=== PATIENT | male | born 2000 | race Caucasian/White ===

== ENCOUNTER 2024-03-29 13:46 | Emergency (ER) | payer BC ==
[~2024-03-29] VITALS: Ht 177.8 cm; Wt 109.1 kg
[2024-03-29 13:53] VITALS: TEMP 98.3
[2024-03-29] MEDS ORDERED: PREDNISONE20 MG PO (16:49)
[2024-03-29 17:05] VITALS: BP 129/89; PULSE 76
== END 2024-03-29 17:05 | disposition home or self-care (01) ==
LOC: COL.ER 13:46
DX: S60.362A Insect bite (nonvenomous) of left thumb, initial encounter (principal); W57.XXXA Bitten or stung by nonvenomous insect and other nonvenomous arthropods, initial encounter